=== PATIENT | male | born 1980 | race Caucasian/White ===

== ENCOUNTER 2019-01-29 00:11 | Emergency (ER) | payer OTHER ==
[2019-01-29] MEDS ORDERED: KETOROLAC 30 MG/ML 1 ML VIAL IM STA (00:41)
[2019-01-29] MEDS ORDERED: DIPH,PERTUS(ACELL)TETVAC-LF 0.5 ML VIAL IM ONE (00:42)
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
--- NOTE | 2019-01-29 01:02 | XR ---
EXAM: XR Right Wrist Complete, 3 or More Views CLINICAL HISTORY: Pain TECHNIQUE: Frontal, lateral and oblique views of the right wrist. COMPARISON: No relevant prior studies available. FINDINGS: Bones/joints: Comminuted fracture of distal radius extending to articular surface, with impaction and moderate volar apex angulation. Ulnar styloid process is also fractured with 12 mm volar radial displacement. Dorsal dislocation. Soft tissues: Associated soft tissue swelling. No radiopaque foreign body. IMPRESSION: 1. Comminuted fracture of distal radius extending to articular surface, with impaction and moderate volar apex angulation. 2. Ulnar styloid process is also fractured with 12 mm volar radial displacement. 3. Dorsal dislocation.
[2019-01-29] MEDS ORDERED: LIDOCAINE 1% INJ 10MG/ML (20 ML MDV) SQ ONE (01:07)
[2019-01-29 03:18] VITALS: BP 109/72; PULSE 86; RESP 18; TEMP 98.6
--- NOTE | 2019-01-29 03:23 | XR ---
EXAM: XR Right Wrist Complete, frontal view CLINICAL HISTORY: Post reduction TECHNIQUE: Frontal view of the right wrist. COMPARISON: same day at 00 47 hour FINDINGS: Cast obscures bone and soft tissue details. Bones/joints: Comminuted fracture fractures of distal radius and ulnar styloid fracture show better alignment. Soft tissues: Associated soft tissue swelling, worse in the ulnar aspect of wrist and distal forearm. IMPRESSION: Comminuted fracture fractures of distal radius and ulnar styloid fracture show better alignment.
== END 2019-01-29 03:18 | disposition home or self-care (01) ==
LOC: EC 00:11
DX: S52.611A Displaced fracture of right ulna styloid process, initial encounter for closed fracture (principal); S52.511A Displaced fracture of right radial styloid process, initial encounter for closed fracture; Z23 Encounter for immunization; Y04.2XXA Assault by strike against or bumped into by another person, initial encounter; Y93.89 Activity, other specified; Y92.009 Unspecified place in unspecified non-institutional (private) residence as the place of occurrence of the external cause
CPT/HCPCS: 73100; 90715; 99283; 25605; 96372; 90471; J2001; J1885